=== PATIENT | female | born 1950 | race Caucasian/White ===

== ENCOUNTER 2018-04-17 11:40 | Emergency (ER) | payer OTHER ==
[~2018-04-17] VITALS: Ht 157.5 cm; Wt 73.4 kg
[2018-04-17 12:21] LABS: HEMOGLOBIN 14.6 G/DL (11.9-15.5); MCH 29.7 PG (29.0-34.0); MCV 87.6 FL (83-99); PLATELET COUNT 292 K/uL (156-360); RBC DIS.WIDTH-CV 13.1 % (11.8-14.6); RBC DIS.WIDTH-SD 42.4 % (39-53); RED BLOOD COUNT 4.91 M/uL (3.80-5.20)
[2018-04-17 12:30] LABS: CHLORIDE 107 mEq/L (99-109); POTASSIUM 3.9 mEq/L (3.7-5.4); SODIUM 142 mEq/L (136-147)
[2018-04-17 12:31] LABS: GLUCOSE 115 mg/dL (70-99)
[2018-04-17 12:35] LABS: CREATININE 0.9 mg/dL (0.6-1.3); GFR ESTIMATE (CALCULATED) > 59 mL/min/
[2018-04-17 12:36] LABS: UREA NITROGEN (BUN) 21 mg/dL (9-23)
[2018-04-17 15:08] LABS: TROP-I INTERPRETATION NEGATIVE; TROPONIN-I < 0.01 ng/mL (0.0-0.30)
[2018-04-17 17:19] LABS: TROP-I INTERPRETATION NEGATIVE; TROPONIN-I 0.01 ng/mL (0.0-0.30)
[2018-04-17 17:48] VITALS: BP 177/86
== END 2018-04-17 18:09 | disposition home or self-care (01) ==
LOC: EME 11:40
PROVIDERS: Nurse Practitioner Family
DX: R42 Dizziness and giddiness (principal); I10 Essential (primary) hypertension; R00.0 Tachycardia, unspecified
CPT/HCPCS: 70450; 71046; 80048; 84484; 85027; 93005; 99281; 99284